=== PATIENT | female | born 1980 | race Two or more races ===

== ENCOUNTER 2022-07-18 13:12 | Emergency (ER) | payer SELFPAY ==
[~2022-07-18] VITALS: Ht 160 cm; Wt 72.0 kg
[2022-07-18 14:15] LABS: Hematocrit 44.6 % (36.0-46.0); Hemoglobin 14.6 g/dL (12.2-16.2); Mean Corpuscular Hemoglobin 28.4 pg (28.0-32.0); Mean Corpuscular Hgb Conc. 32.8 g/dL (32.0-36.0); Mean Corpuscular Volume 86.6 fL (80.0-100.0); Red Blood Cells 5.14 10^6/uL (4.0-5.20); Red Cell Distribution Width 13.9 % (11.8-14.3); White Blood Cell 18.1 10^3/uL (4.4-10.8)
[2022-07-18 14:30] LABS: Basophils % (manual) 0 (0.0-2.0); Blast Cells 0; Eosinophils % (manual) 0 (0-7); Metamyelocytes % 0; Myelocytes % 0; Promyelocytes % 0; Reactive Lymphocytes 0
[2022-07-18 14:31] LABS: BUN/Creatinine Ratio 11.2; Calcium 8.9 mg/dL (8.5-10.1); Potassium 3.8 mmol/L (3.5-5.1)
[2022-07-18 14:43] LABS: Urine Bacteria FEW /hpf (None Seen); Urine Blood Negative /uL (Negative); Urine Hyaline Cast FEW /lpf (0 - 2); Urine Mucus FEW (None Seen); Urine Specific Gravity 1.034 (1.001-1.035); Urine WBC 8 /hpf (0 - 5)
[2022-07-18 14:49] LABS: Bilirubin, Total 2.9 mg/dL (0.2-1.0)
[2022-07-18 14:50] LABS: Band Neutrophils % (manual) 7; Lymphocytes % (manual) 1 (10.0-50.0); Monocytes % (manual) 3 (0-12)
[2022-07-18] MEDS ORDERED: NITROFURANTOIN 100 mg CAP PO ONE (19:00)
[2022-07-18] MEDS ORDERED: HYDROcodone-ACET 10/325MG TAB PO ONE (19:15)
[2022-07-19] MEDS ORDERED: SODIUM CHLORIDE 0.9% 1,000 ML IV ONE (04:30)
[2022-07-19 07:34] LABS: Albumin 3.5 g/dL (3.4-5.0); BUN/Creatinine Ratio 15.2; Calcium 7.7 mg/dL (8.5-10.1); Potassium 3.7 mmol/L (3.5-5.1)
[2022-07-19 07:37] LABS: Bilirubin, Total 3.7 mg/dL (0.2-1.0); Total Protein 6.6 g/dL (6.4-8.2)
[2022-07-19 07:48] LABS: Alcohol, Urine < 3.0 mg/dL (0-10); Amphetamine Screen, Urine NEGATIVE (NEGATIVE); Barbiturate Scree,Urine NEGATIVE (NEGATIVE); Benzodiazephine Screen, Urine NEGATIVE (NEGATIVE); Cannabinoid Screen, Urine NEGATIVE (NEGATIVE); Cocaine Screen, Urine NEGATIVE (NEGATIVE); Opiate Scree,Urine NEGATIVE (NEGATIVE); Phencyclidine Screen, Urine NEGATIVE (NEGATIVE)
[2022-07-19] MEDS ORDERED: HYDROcodone-ACET 10/325MG TAB PO ONE (13:30)
[2022-07-19 13:49] LABS: Hepatitis A Ab IgM Negative
[2022-07-19 13:50] LABS: Hepatitis B Core IgM Negative; Hepatitis C Antibody Negative (Negative)
[2022-07-19] MEDS ORDERED: HYDR-4902 PO (14:15)
[2022-07-19 17:09] VITALS: BP 121/75
== END 2022-07-18 17:36 | disposition short-term general hospital (02) ==
LOC: ER 13:12
DX: N39.0 Urinary tract infection, site not specified (principal); R74.01 Elevation of levels of liver transaminase levels; R10.2 Pelvic and perineal pain; Z90.49 Acquired absence of other specified parts of digestive tract
CPT/HCPCS: 36415; 74181; 76705; 80053; 80074; 80307; 80320; 81001; 81025; 83690; 84702; 85007; 85027; 96360; 99285; J7030